=== PATIENT | male | born 1960 | race Caucasian/White ===

== ENCOUNTER → 2017-01-27 | Outpatient (CLI) | payer OTHER ==
[~2017-01-27] MED LIST: REGADENOSON 0.4 MG/5 ML SYRINGE ONE
== END | disposition home or self-care (01) ==
LOC: CFH 07:11
PROVIDERS: ATTEND Internal Medicine Cardiovascular Disease
DX: I25.9 Chronic ischemic heart disease, unspecified (principal); I10 Essential (primary) hypertension
CPT/HCPCS: 78452; 93017; A9502; J2785

== ENCOUNTER 2017-02-17 08:08 | Day surgery (SDC) | payer OTHER ==
[2017-02-16 09:12] VITALS: BP 135/70
[2017-02-16 10:00] LABS: ASPARTATE AMINO TRANSFERASE 23 U/L (15-37); BLOOD UREA NITROGEN 18 mg/dL (7-18)
[~2017-02-17] VITALS: Ht 190.5 cm; Wt 140.9 kg
[~2017-02-17 08:08] MED LIST changes: +ALLO300T PO; +AMLO5TAB4 PO; +ATOR10TA PO; +CHOL200012 PO; +CHOL5000 PO; +FLUT1BLS INH; +METF500T4 PO; -REGADENOSON 0.4 MG/5 ML SYRINGE ONE
[2017-02-17] MEDS ORDERED: ATOR80TA PO (11:55)
== END 2017-02-17 13:45 | disposition home or self-care (01) ==
LOC: CACL 08:08
PROVIDERS: ATTEND Internal Medicine Cardiovascular Disease
DX: I25.10 Atherosclerotic heart disease of native coronary artery without angina pectoris (principal); E11.9 Type 2 diabetes mellitus without complications; I10 Essential (primary) hypertension; E78.2 Mixed hyperlipidemia; G47.30 Sleep apnea, unspecified; F17.200 Nicotine dependence, unspecified, uncomplicated; Z79.84 Long term (current) use of oral hypoglycemic drugs
CPT/HCPCS: 36415; 71020; 80053; 85025; 85610; 85730; 93005; 93460; 99156; 99157; C1894; J0583; J1644; J2250; J3010; J3490; Q9967